=== PATIENT | male | born 1995 | race Caucasian/White ===

== ENCOUNTER 2019-03-20 09:29 | Outpatient (CLI) | payer OTHER ==
[~2019-03-20 09:29] MED LIST: ALLEGRA ALLERG180 MG PO; AMOX1TAB12 PO
== END 2019-03-20 09:39 | disposition home or self-care (01) ==
LOC: LAB 09:29
DX: J18.0 Bronchopneumonia, unspecified organism (principal)

== ENCOUNTER 2021-11-06 17:25 | Emergency (ER) | payer OTHER ==
[~2021-11-06] VITALS: Ht 177.8 cm; Wt 74.8 kg
[2021-11-06] MEDS ORDERED: VYVANSE20 MG (17:49)
[2021-11-06] MEDS ORDERED: MINOCYCLINE HC100 MG (17:49)
== END 2021-11-06 19:08 | disposition home or self-care (01) ==
LOC: ER 17:25
DX: S61.421A Laceration with foreign body of right hand, initial encounter (principal); W25.XXXA Contact with sharp glass, initial encounter; Y93.89 Activity, other specified; Y92.89 Other specified places as the place of occurrence of the external cause

== ENCOUNTER 2021-11-12 09:46 | Emergency (ER) | payer OTHER ==
[~2021-11-12] VITALS: Ht 177.8 cm; Wt 74.8 kg
[~2021-11-12 09:46] MED LIST changes: +MINOCYCLINE HC100 MG; +VYVANSE20 MG
== END 2021-11-12 10:18 | disposition home or self-care (01) ==
LOC: ER 09:46
DX: Z48.02 Encounter for removal of sutures (principal)

== ENCOUNTER 2021-11-16 10:09 | Emergency (ER) | payer OTHER ==
[~2021-11-16] VITALS: Ht 177.8 cm; Wt 72.6 kg
== END 2021-11-16 11:56 | disposition home or self-care (01) ==
LOC: ER 10:09
DX: Z48.02 Encounter for removal of sutures (principal)

== ENCOUNTER 2022-11-30 07:45 | Outpatient (CLI) | payer OTHER | END 2022-11-30 08:02 | disposition home or self-care (01) | LOC: MRI 07:45 | DX: S60.212A Contusion of left wrist, initial encounter (principal); M79.642 Pain in left hand | CPT/HCPCS: 73221 ==

== ENCOUNTER 2023-06-22 08:24 | Outpatient (CLI) | payer OTHER | END 2023-06-22 08:34 | disposition home or self-care (01) | LOC: SONOGRAMA 08:24 | PROVIDERS: ATTEND General Practice | DX: R16.2 Hepatomegaly with splenomegaly, not elsewhere classified (principal); N28.1 Cyst of kidney, acquired ==

== ENCOUNTER 2024-05-30 19:19 | Emergency (ER) | payer OTHER ==
[~2024-05-30] VITALS: Ht 180.3 cm; Wt 83.9 kg
[2024-05-30] MEDS ORDERED: KETOROLAC TROMETHAMINE 30 MG VIAL IM ONE (21:00)
[2024-05-30] MEDS ORDERED: CEFTRIAXONE SODIUM 1,000 MG VIAL IM ONE (21:00)
[2024-05-30] MEDS ORDERED: CORTISPORIN EAR10 M1 OPHT (21:08)
[2024-05-30] MEDS ORDERED: DUI500 PO (21:08)
== END 2024-05-30 21:34 | disposition home or self-care (01) ==
LOC: ER 19:21
DX: R53.81 Other malaise (principal); H66.91 Otitis media, unspecified, right ear; J02.9 Acute pharyngitis, unspecified

== ENCOUNTER → 2025-05-18 | Emergency (ER) | payer OTHER ==
[~2025-05-18] VITALS: Ht 177.8 cm; Wt 79.4 kg
[~2025-05-18] MED LIST changes: +ACULAR5 ML OP; +CETIRIZINE HCL 5MG/5ML BLIST.PACK PO ONE; +CORTISPORIN EAR10 M1 OPHT; +DUI500 PO; +POLYMYXIN B/TMP10 ML OP; +TETRACAINE HCL 20 DR/ML DROPS OP ONE
[2025-05-18 14:17] LABS: BASO % 0.6 % (0.1-1.2); EOS # 0.07 (0.04-0.54); EOS % 1.0 % (0.7-7.0); LYMPH # 1.67 (1.18-3.74); LYMPH % 24.7 % (19.3-53.1); MEAN PLATELET VOLUME 9.00 fl (9.4-12.4); MONO # 0.56 (0.24-0.82); MONO % 8.3 % (4.7-12.5); NEUT # 4.41 (1.56-6.13); NEUT % 65.1 % (34.0-71.1); RED CELL DISTRIBUTION WIDTH 12.2 % (11.6-14.4)
[2025-05-18 14:39] LABS: COVID-19 AG NEGATIVE (NEGATIVE)
[2025-05-18 14:42] LABS: BUN CREA RATIO 15.0 (7.0-25.0); CREATININE SERUM 0.96 mg/dL (0.70-1.30); GFR 93.96; GLUCOSE FASTING 94.0 mg/dL (65-100); OSMOLALITY SERUM 283.0 MOSM/KG (275-295)
== END | disposition home or self-care (01) ==
LOC: ER 12:17
PROVIDERS: Student in an Organized Health Care Education/Training Program
DX: S05.8X1A Other injuries of right eye and orbit, initial encounter (principal); X58.XXXA Exposure to other specified factors, initial encounter; Y93.66 Activity, soccer; Y92.89 Other specified places as the place of occurrence of the external cause; Y99.9 Unspecified external cause status; Z20.822 Contact with and (suspected) exposure to COVID-19